=== PATIENT | male | born 1945 | race Caucasian/White ===

== ENCOUNTER 2016-07-16 05:15 | Inpatient (IN) | payer MEDICARE ==
[2016-07-12 11:42] LABS: HEMATOCRIT 39.7 % (40.0-51.0); HEMOGLOBIN 13.4 g/dL (13.6-17.8)
[2016-07-12 11:52] LABS: BUN (BLOOD UREA NITROGEN) 14 MG/DL (6-23); CALCIUM, SERUM 8.6 MG/DL (8.5-10.4); CHLORIDE, SERUM 107 MMOL/L (96-112); CO2 (CARBON DIOXIDE) 27 MMOL/L (24-34); CREATININE 1.46 MG/DL (0.70-1.30); GFR AFRICAN AMERICAN 56 ML/MIN (>=60); GFR NON AFRICAN AMERICAN 48 ML/MIN (>=60); GLUCOSE, SERUM 87 MG/DL (60-99); POTASSIUM, SERUM 3.7 MMOL/L (3.5-5.3); SODIUM, SERUM 142 MMOL/L (135-148)
[2016-07-12 12:13] LABS: ASCORBIC ACID (UR NOT ORDER) NEG (NEG); BILIRUBIN, URINE NEGATIVE (NEG); KETONE, URINE NEGATIVE (NEG); LEUKOCYTE ESTERASE(NOT OR LARGE (NEG); WBC (NOT ORDERED) (RFLEX) 34 (0-5)
--- NOTE | ~2016-07-16 | OP ---
Record Of Operation [facility] [address] [place]. [address] NAME: XIOMARA PEDERSON : 47 STATUS : DIS IN PAT#: [id number] AGE: 71 ADM/REG DATE : 07/16/16 MR#: [id number] REPORT SERV DATE: 07/17/16 DICTATED BY: CRISTOBAL ROSA DATE: 07/17/16 REPORT STATUS : Draft TRANSCRIBED BY: MODL DATE: 07/17/16 DATE OF PROCEDURE: 07/16/2016 SURGEON: Cristobal Rosa MD. TITLE OF OPERATIONS: 1. Robot-assisted laparoscopic simple prostatectomy. 2. Open lysis of adhesions. 3. Partial removal of migrated mesh. 4. Over-sewing of bowel serosa. PREOPERATIVE DIAGNOSES: 1. Benign prostatic hyperplasia with obstruction. 2. Urinary retention. POSTOPERATIVE DIAGNOSES: 1. Benign prostatic hypertrophy with obstruction. 2. Urinary retention. 3. Significant adhesions from prior umbilical hernia repair. INDICATION FOR SURGERY: Mr. Xiomara Pederson is a 71-year-old male with a greater than 100 g prostate. He is in urinary retention. He is here for robotic simple prostatectomy. ANESTHESIA: General. COMPLICATIONS: None. IMPLANTS: A 24-Cambodian 3-way Moody catheter. #10 round DIMITRIS drain. SPECIMEN: 1. Prostatic adenoma. 2. Umbilical hernia mesh. NARRATIVE: The patient was brought to the operating room, identified by his wristband. General anesthesia was induced. Ancef was given for preoperative antibiotics. He was placed in the dorsal lithotomy position, prepped and draped in sterile fashion. He was secured to the bed with pads and tape. A 16-Cambodian Moody catheter was placed into the bladder. The balloon was inflated to 10 mL of sterile water. The abdomen was insufflated to a pressure of 15 mmHg using a Veress needle. An 8 mm port was placed in the supraumbilical position under direct vision. The abdomen was inspected. There was significant omental adhesions with several loops of bowel adherent to the prior umbilical hernia mesh. I was able to place the remaining 8 mm X-Y port with two on the left side of the body, and one on the right side of the body. A 12 mm port was placed in the right lower quadrant. The 5 mm port was placed in the right upper quadrant for assistant teaching professor port. At this time, I thought at best to proceed with the prostatectomy and deal with the significant adhesions upon removal of the prostate. The patient was placed in Trendelenburg, and the Record Of Operation [place] [address] [facility] [place]. [address] NAME: XIOMARA PEDERSON : 47 STATUS : DIS IN PAT#: [id number] AGE: 71 ADM/REG DATE : 07/16/16 MR#: [id number] REPORT SERV DATE: 07/17/16 DICTATED BY: CRISTOBAL ROSA DATE: 07/17/16 REPORT STATUS : Draft TRANSCRIBED BY: MODVinod DATE: 07/17/16 robot was docked. The bladder was dropped off the anterior abdominal wall with electrocautery exposing to the bone and prostate. The fibrofatty tissue and superficial dorsal vein were controlled with bipolar cautery and scissors. This tissue was removed and discarded. A horizontal cystotomy was made in the bladder just proximal to the bladder neck. Intravesical prostatic adenoma was identified. A 2-0 Vicryl suture was placed as a marking suture and clips were used to hold in place. The ureteral orifices were identified and found to be in orthotopic position. The bladder mucosa just distal to the trigone was scored with electrocautery. This incision was deepened through the detrusor muscles onto the adenoma. The adenoma was followed down to the junction of the transitional and peripheral zones. At this time, the peripheral zone was taken off the transitional zone from the base to the apex of the prostate. Next, the adenoma was dissected off the capsule laterally and superiorly from the base of the apex. Pinpoint bleeders were controlled with bipolar cautery. The urethra was identified and sharply divided. The adenoma was then removed from the prostatic fossa and placed into an EndoCatch bag. Arterial bleeding was controlled with bipolar cautery. The bladder mucosa was advanced into the prostatic fossa using a 3-0 V-Loc suture in a running fashion. I noticed no pedicle bleeders at the 5 and 7 o'clock positions. A second 3-0 Vicryl V-Loc suture was then used to oversew the dorsal venous penetrators in the U shape formation. A 24-Cambodian 3-way Moody catheter was placed into the bladder under robotic assistance. The cystotomy was closed in two layers. The mucosa was closed with a 3-0 V-Loc suture in a running fashion. The seromuscular layer was closed with a 2-0 V lock suture in a running fashion. The bladder was irrigated, the connection was water tight. The balloon was inflated with 40 mL of sterile water and CBI was initiated. The 12 mm assistant teaching professor port was closed with a Les-Carol device with a 0 Vicryl suture. A #10 round DIMITRIS drain was placed through the left most lateral robotic port. All other ports were removed. A periumbilical incision was then made utilizing the supraumbilical incision previously placed. The fascia was then sharply divided with Metzenbaum scissors. The lesions were sharply taken down using Metzenbaum scissors. The mesh had migrated off the anterior abdominal wall, and had formed a pseudo capsule which had incorporated several loops of bowel. The bowel was then lysed off the mesh sharply under direct vision. The excess mesh was trimmed and removed. Once the bowel had been freed from the mesh, I inspected it. There was no clear injury. The area of the previous adhesions were oversewn with interrupted 0 silk sutures. There was no full-thickness bowel injury or serosal injury either. Next, the prostate in its EndoCatch bag was removed, and sent to pathology for analysis. The fascia was closed with interrupted 0 Monocryl suture in a [id number] fashion. The wounds were irrigated clear. The skin and the subcutaneous tissues were closed with a 3-0 Vicryl suture in interrupted fashion. Skin was closed with a 4-0 Monocryl suture in a subcuticular fashion. A Dermabond dressing was placed. The patient was then awoken from anesthesia, and transferred to the recovery room in stable condition. There were no complications. His urine was clear upon leaving the operating room. LORAINE/MARITO Cristobal Rosa MD Record Of Operation [address] [address] NAME: XIOMARA PEDERSON : 47 STATUS : DIS IN PAT#: [id number] AGE: 71 ADM/REG DATE : 07/16/16 MR#: [id number] REPORT SERV DATE: 07/17/16 DICTATED BY: CRISTOBAL ROSA DATE: 07/17/16 REPORT STATUS : Draft TRANSCRIBED BY: MODL DATE: 07/17/16 / [id number] CC: MD Grayson King M.D.
[~2016-07-16 05:15] MED LIST: ACET500CAP PO; APRES10B PO; ASAB PO; COREG6 PO; FLOMAX4 PO; LISINOPRIL40 MG PO; LOPID6 PO; NORV5 PO; PRILO PO; PRIM50B PO; PRIN20 PO; SENTAB PO
[2016-07-16 10:15] LABS: BASOPHILS 0.4 %; BASOPHILS ABSOLUTE 0.03 10/3/uL (0.0-0.16); EOSINOPHILS 2.2 %; EOSINOPHILS ABSOLUTE 0.18 10/3/uL (0.0-0.53); HEMATOCRIT 37.7 % (40.0-51.0); HEMOGLOBIN 12.6 g/dL (13.6-17.8); IMMATURE GRANULOCYTES 0.5 %; IMMATURE GRANULOCYTES ABSOLUTE 0.04 10/3/uL (0.0-0.11); LYMPHOCYTES 13.6 %; LYMPHOCYTES ABSOLUTE 1.14 10/3/uL (0.67-4.30); MEAN CORPUS HGB CONC 33.4 g/dL (32.0-36.0); MEAN CORPUSCULAR HEMOGLOB 30.7 pg (26.0-34.0); MEAN PLATELET VOLUME 9.4 fL (9.2-13.0); MONOCYTES 2.3 %; MONOCYTES ABSOLUTE 0.19 10/3/uL (0.21-1.20); NEUTROPHILS ABSOLUTE 6.78 10/3/uL (2.02-8.40); PLATELET COUNT 192 10/3/uL (150-400); WHITE BLOOD CELLS 8.4 10/3/uL (4.5-10.5)
[2016-07-16 10:18] LABS: MANUAL DIFF NO %; RBC DISTRIBUTION WIDTH 15.2 % (12.0-16.0)
[2016-07-16 10:27] LABS: BUN (BLOOD UREA NITROGEN) 13 MG/DL (6-23); CALCIUM, SERUM 8.3 MG/DL (8.5-10.4); CHLORIDE, SERUM 106 MMOL/L (96-112); CO2 (CARBON DIOXIDE) 27 MMOL/L (24-34); CREATININE 1.44 MG/DL (0.70-1.30); GFR AFRICAN AMERICAN 57 ML/MIN (>=60); GFR NON AFRICAN AMERICAN 49 ML/MIN (>=60); GLUCOSE, SERUM 103 MG/DL (60-99); POTASSIUM, SERUM 3.9 MMOL/L (3.5-5.3); SODIUM, SERUM 140 MMOL/L (135-148)
[2016-07-17 04:49] LABS: BASOPHILS 0.2 %; BASOPHILS ABSOLUTE 0.02 10/3/uL (0.0-0.16); EOSINOPHILS 0.1 %; EOSINOPHILS ABSOLUTE 0.01 10/3/uL (0.0-0.53); HEMATOCRIT 36.7 % (40.0-51.0); HEMOGLOBIN 12.4 g/dL (13.6-17.8); IMMATURE GRANULOCYTES 0.5 %; IMMATURE GRANULOCYTES ABSOLUTE 0.06 10/3/uL (0.0-0.11); LYMPHOCYTES 11.6 %; LYMPHOCYTES ABSOLUTE 1.47 10/3/uL (0.67-4.30); MEAN CORPUS HGB CONC 33.8 g/dL (32.0-36.0); MEAN CORPUSCULAR HEMOGLOB 31.2 pg (26.0-34.0); MEAN CORPUSCULAR VOLUME 92.4 fL (80-100); MEAN PLATELET VOLUME 9.6 fL (9.2-13.0); MONOCYTES ABSOLUTE 1.39 10/3/uL (0.21-1.20); NEUTROPHILS 76.6 %; PLATELET COUNT 202 10/3/uL (150-400); RBC DISTRIBUTION WIDTH 14.8 % (12.0-16.0); RED CELL COUNT 3.97 10/6/uL (4.7-6.1)
[2016-07-17 04:50] LABS: MANUAL DIFF NO %; WHITE BLOOD CELLS 12.7 10/3/uL (4.5-10.5)
[2016-07-17 05:01] LABS: BUN (BLOOD UREA NITROGEN) 12 MG/DL (6-23); CALCIUM, SERUM 8.3 MG/DL (8.5-10.4); CHLORIDE, SERUM 107 MMOL/L (96-112); CO2 (CARBON DIOXIDE) 28 MMOL/L (24-34); CREATININE 1.44 MG/DL (0.70-1.30); GFR AFRICAN AMERICAN 57 ML/MIN (>=60); GFR NON AFRICAN AMERICAN 49 ML/MIN (>=60); GLUCOSE, SERUM 119 MG/DL (60-99); SODIUM, SERUM 139 MMOL/L (135-148)
[2016-07-17] MEDS ORDERED: BACDS PO (07:57)
[2016-07-17] MEDS ORDERED: DSS PO (07:57)
[2016-07-17] MEDS ORDERED: PCET PO (07:57)
== END 2016-07-17 14:13 | disposition home or self-care (01) | DRG 717 ==
LOC: SDC/OF 05:15 → PACU 09:43 → 4SO 14:27
PROVIDERS: Urology
PROC: 0VB04ZZ Excision of Prostate, Percutaneous Endoscopic Approach (ICD-10-PCS; principal; 2016-07-16 06:30)
PROC: 0DPD0JZ Removal of Synthetic Substitute from Lower Intestinal Tract, Open Approach (ICD-10-PCS; principal; 2016-07-16 06:30)
PROC: 0DN80ZZ Release Small Intestine, Open Approach (ICD-10-PCS; principal; 2016-07-16 06:30)
PROC: 8E0W4CZ Robotic Assisted Procedure of Trunk Region, Percutaneous Endoscopic Approach (ICD-10-PCS; principal; 2016-07-16 06:30)
PROC: 0DNT4ZZ (ICD-10-PCS; principal; 2016-07-16 06:30)
PROC: 0DQ80ZZ Repair Small Intestine, Open Approach (ICD-10-PCS; principal; 2016-07-16 06:30)
DX: N40.1 Benign prostatic hyperplasia with lower urinary tract symptoms (principal); N13.8 Other obstructive and reflux uropathy; I10 Essential (primary) hypertension; T83.718A Erosion of other implanted mesh to organ or tissue, initial encounter; R33.8 Other retention of urine; Y83.8 Other surgical procedures as the cause of abnormal reaction of the patient, or of later complication, without mention of misadventure at the time of the procedure; K66.0 Peritoneal adhesions (postprocedural) (postinfection); Z88.0 Allergy status to penicillin
CPT/HCPCS: 36415; 80048; 81001; 85014; 85018; 85025; 86850; 86900; 86901; 87077; 87086; 87186; 88307; 93005; A9270-GY; J0690; J1580; J2250; J2405; J2710; J2795; J3010